=== PATIENT | male | born 1985 | race Caucasian/White ===

== ENCOUNTER 2018-11-08 08:46 | Emergency (ER) | payer OTHER ==
[~2018-11-08] VITALS: Ht 175.3 cm; Wt 77.1 kg
[2018-11-08 08:47] VITALS: BP_SYST 143
--- NOTE | 2018-11-08 08:47 | NUR ---
Patient to ER hallway chair for evaluation, accompanied by police officers. Continuing care as primary nurse.
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
--- NOTE | 2018-11-08 08:58 | NUR ---
Written and verbal consent obtained from patient for blood alcohol, name and verified by patient. Disinfected patient's skin with iodine swabs that did not contain alcohol or other volatile organic compound. Collected the blood from the subject named by venipuncture, in the presence of Officer Harmeet Magana. Used a sterile, dry hypodermic needle and dry vacuum blood collection. Two dry vacuum blood collection was supplied by the officer named above. Withdrew two specimens of blood from right AC of the subject named above. Inverted both blood tubed several times to ensure that the preservative and anticoagulant were thoroughly mixed in the blood specimen. The labeled blood tubes was handed directly to the Officer named above. The blood tubes stopper remained in place while I had possession of the blood tubes. The Officer placed tubes into envelope and sealed it in my presence. Envelope initialed by myself and Officer named above. Patient tolerated well, bandage applied, and bleeding controlled.
--- NOTE | 2018-11-08 09:05 | NUR ---
ER Dr. Niño at chairside examining patient.
[2018-11-08 09:30] VITALS: BP_SYST 143
--- NOTE | 2018-11-08 09:30 | NUR ---
Patient given written and verbal discharge instructions and verbalizes understanding. ER MD discussed with patient the results and treatment provided. Patient in stable condition. ID arm band removed. Patient educated on pain management and to follow up with [employer]D. Pain Scale 0/10. Opportunity for questions provided and answered. Pt discharged under care of [employer] officers.
== END 2018-11-08 09:30 ==
LOC: SED 08:46
DX: F10.129 Alcohol abuse with intoxication, unspecified (principal); V89.2XXA Person injured in unspecified motor-vehicle accident, traffic, initial encounter; Y93.89 Activity, other specified; Y92.410 Unspecified street and highway as the place of occurrence of the external cause; Y99.8 Other external cause status
CPT/HCPCS: 99283